=== PATIENT | female | born 1985 | race African-American/Black ===

== ENCOUNTER 2018-07-03 09:49 | Emergency (ER) | payer OTHER ==
[~2018-07-03] VITALS: Ht 162.6 cm; Wt 83.9 kg
[2018-07-03 09:53] VITALS: Ht 162.6 cm; Wt 83.9 kg
[2018-07-03 10:21] LABS: PLATELET COUNT 263 x10^3mcL (130-400)
[2018-07-03 10:26] LABS: BASOPHIL % 0.7 % (0-2)
[2018-07-03 10:31] LABS: RED CELL DISTRIBUTION WIDTH 14.6 % (11.5-14.5)
[2018-07-03 11:16] LABS: UA SPECIFIC GRAVITY >=1.030 (1.005-1.035); microscopic required? YES; urine erythrocyte 3+ (NEGATIVE)
[2018-07-03 11:34] VITALS: BP 129/72
== END 2018-07-03 11:34 | disposition home or self-care (01) ==
LOC: ED 09:49
PROVIDERS: Emergency Medicine
DX: O03.9 Complete or unspecified spontaneous abortion without complication (principal); D72.819 Decreased white blood cell count, unspecified
CPT/HCPCS: 36415

== ENCOUNTER 2018-10-05 14:10 | Emergency (ER) | payer OTHER ==
[~2018-10-05] VITALS: Ht 162.6 cm; Wt 82.1 kg
[2018-10-05 14:22] VITALS: BP 108/68; Ht 162.6 cm; Wt 82.1 kg
== END 2018-10-05 17:09 | disposition home or self-care (01) ==
LOC: ED 14:10
DX: R25.2 Cramp and spasm (principal); M25.511 Pain in right shoulder
CPT/HCPCS: 20552; J2001